=== PATIENT | male | born 1960 | race Caucasian/White ===

== ENCOUNTER → 2020-05-07 | Outpatient (CLI) | payer BC ==
[~2020-05-07] MED LIST: INSU100V8 SQ; LISI10TA2 PO; METF500T16 PO
--- NOTE | 2020-05-07 13:47 | RAD ---
CHEST PA LATERAL History: Cough Comparison: None. Findings: 2 views of the chest are submitted. There is some hazy airspace opacity of the left hemithorax most notable of the mid left hemithorax, also of the right lung base. There is no dependent pleural fluid or pneumothorax. Heart size is upper limits of normal. Impression: 1. There is hazy airspace opacity of the hemithoraces greatest of the mid left hemithorax, also the right lung base. Findings may be due to infiltrates versus edema. Sequela of viral infectious etiology such as COVID is in the differential. Electronically signed by: Arsen Hooper MD (05/07/2020 1:44 PM) [id number]
== END ==
LOC: RAD 13:19
PROVIDERS: ATTEND Family Medicine
DX: R05 Cough (principal)
CPT/HCPCS: 71046

== ENCOUNTER → 2020-05-12 | Outpatient (CLI) | payer BC ==
--- NOTE | 2020-05-12 16:02 | RAD ---
Single view of the chest. 05/12/2020 12:00 AM Indication: Reason: COUGH / Spl. Instructions: / History: Comparison: Chest radiograph May 07, 2020 Findings: Patchy infiltrates, previously most prominent in the left lung are improved in the interim. Mild residual infiltration may be present. No pneumothorax or effusion is seen. Heart size is normal. Lung volumes slightly low. Bony thorax grossly intact. IMPRESSION: Improving patchy bilateral infiltrates as described Electronically signed by: Mark Anthony Estrada MD (05/12/2020 4:00 PM) [id number]
== END ==
LOC: RAD 14:00
PROVIDERS: ATTEND Family Medicine
DX: R05 Cough (principal)
CPT/HCPCS: 71046

== ENCOUNTER → 2020-05-21 | Outpatient (CLI) | payer BC ==
--- NOTE | 2020-05-21 10:11 | RAD ---
CHEST PA LATERAL History: Reason: COUGH, FOLLOW UP PATCHY INFILTRATES / Spl. Instructions: / History: Comparison: May 12, 2020 Findings: Multifocal ill-defined opacities bilaterally, overall similar compared to prior. No pleural effusion. No pneumothorax. Normal heart size. Impression: 1. Unchanged multifocal ill-defined opacities bilaterally. Recommend 3-4 week radiographic follow-up. If persistent opacities, CT can further evaluate. Electronically signed by: Randolph Alvarez DO (05/21/2020 10:08 AM) [facility]
== END ==
LOC: DXRAD 09:26
PROVIDERS: ATTEND Family Medicine
DX: R05 Cough (principal)
CPT/HCPCS: 71046

== ENCOUNTER 2020-12-07 20:02 | Emergency (ER) | payer BC ==
[~2020-12-07] VITALS: Ht 182.9 cm; Wt 150.0 kg
[~2020-12-07 20:02] MED LIST changes: +LISI10TA16 PO; -LISI10TA2 PO
[2020-12-07] MEDS ORDERED: INSULIN REGULAR VIAL 100 UNIT in IV NORMAL SALINE 100ML 100 ML IV ONE (20:45)
[2020-12-07] MEDS: IV NORMAL SALINE 1,000ML 1,000 ML IV STA (20:57)
[2020-12-07] MEDS ORDERED: VANCOMYCIN 1 GM in IV NORMAL SALINE 250ML 250 ML IV ONE (21:00)
[2020-12-07 21:13] LABS: BASO # 0.1 x10^3/uL (0.0-0.2); BASO % 1 % (0-3); EOS % 0 % (0-3); HEMATOCRIT 36.2 % (39.0-53.0); HEMOGLOBIN 12.2 g/dL (13.0-17.5); LYMPH # 1.1 x10^3/uL (1.0-4.8); LYMPH % 6 % (24-48); MEAN CORPUSCULAR HEMOGLOBIN 32 pg (25-35); MEAN CORPUSCULAR HGB CONC 34 g/dL (31-37); MEAN CORPUSCULAR VOLUME 94 fL (79-100); MONO # 1.8 x10^3/uL (0.0-1.1); MONO % 10 % (0-9); NEUT # 15.6 x10^3uL (1.8-7.7); NEUT % 84 % (31-73); PLATELET COUNT 389 x10^3/uL (140-400); RED BLOOD COUNT 3.84 x10^6/uL (4.30-5.70); RED CELL DISTRIBUTION WIDTH 12.8 % (11.5-14.5); WHITE BLOOD COUNT 18.7 x10^3/uL (4.0-11.0)
[2020-12-07] MEDS: INSULIN REGULAR 100 UNIT/ML 3ML VIAL. IV ONE (21:33)
[2020-12-07] MEDS: VANCOMYCIN 2 GM in IV NORMAL SALINE 500ML 500 ML IV ONE (21:35)
[2020-12-07 21:38] LABS: CALCIUM 9.2 mg/dL (8.5-10.1); CREATININE 2.1 mg/dL (0.7-1.3); GFR 32.3; MAGNESIUM 1.7 mg/dL (1.8-2.4); POTASSIUM 4.5 mmol/L (3.5-5.1)
[2020-12-07] MEDS: cefTRIAXone IM 1 GM VIAL IM ONE (21:40)
[2020-12-07] MEDS: TETANUS AND DIPHTHERIA TOX/PF 0.5 ML VIAL. VAX IM ONE (21:44)
[2020-12-07 21:52] LABS: % BANDS 3 % (0-9); % LYMPHS 5 % (24-48); % METAS 1 % (0-0); % MONOS 11 % (0-10); % SEGS 80 % (35-66); PLT ESTIMATE ADEQUATE (ADEQUATE)
--- NOTE | 2020-12-07 22:19 | RAD ---
EXAM: XR CHEST 1V 12/07/2020 9:15 PM CLINICAL INDICATION: Mental status change, infection COMPARISON: Chest radiograph 05/21/2020 TECHNIQUE: AP upright view the chest FINDINGS: The heart and mediastinum are normal. Lungs are hypoexpanded. No consolidation, pleural effusion, or pneumothorax. Pulmonary vascularity is normal. The thoracic skeleton is intact. IMPRESSION: No acute cardiopulmonary abnormality. Electronically signed by: Eliza Ross MD (12/07/2020 10:17 PM) [id number]
--- NOTE | 2020-12-07 22:19 | RAD ---
EXAM: CT head without contrast INDICATION: Mental status change COMPARISON: None available TECHNIQUE: Axial CT imaging through the head without intravenous contrast. One or more of the following individualized dose reduction techniques were utilized for this examinat ion: 1. Automated exposure control 2. Adjustment of the mA and/or kV according to patient size 3. Use of iterative reconstruction technique. FINDINGS: No intracranial hemorrhage, acute infarct, or mass lesion. The ventricles and sulci are moderately en larged. Bautista-white matter differentiation is maintained. The calvarium is intact. Visualized paranasa l sinuses and mastoid air cells are clear. Globes and orbits are intact. IMPRESSION: 1. No acute intracranial abnormality. 2. Moderate volume loss. Electronically signed by: Eliza Ross MD (12/07/2020 10:16 PM) [id number]
--- NOTE | 2020-12-07 22:23 | RAD ---
EXAM: XR FEET 3 VIEWS 12/07/2020 9:15 PM CLINICAL INDICATION: Bilateral dorsal foot ulcers COMPARISON: None TECHNIQUE: 3 views of the right foot 3 views of left foot. FINDINGS: Left foot: No acute fracture. Alignment is normal. There is joint space narrowing with subchondral cy sts at the second and TP joint. Dorsal osteophytes at the TMT joints and naviculocuneiform joint. The re is diffuse soft tissue swelling. Probable ulcer at the tip of the third distal phalanx with possib le cortical indistinctness in the distal phalanx tuft. Right foot: There is severe degenerative joint disease of the great toe MTP joint with subchondral cy sts. There is degenerative joint disease throughout the midfoot with dorsal osteophytes. No acute fra cture. Alignment is normal. There is no definite osseous junction. There is diffuse soft tissue swell ing, greatest along the dorsum of the midfoot. IMPRESSION: 1. Left foot: Soft tissue ulcer at the tip of the third distal phalanx with possible erosion in the u nderlying distal phalanx, which could indicate osteomyelitis. MRI could be obtained to further evalua te. Right foot: No radiographic evidence of osteomyelitis. Dorsal soft tissue swelling. Electronically signed by: Eliza Ross MD (12/07/2020 10:20 PM) [id number]
--- NOTE | 2020-12-07 22:24 | PHYS DOC ---
Past History Past Medical History: Arthritis, Diabetes, High Cholesterol, Hypertension Past Surgical History: Tonsillectomy, Other Smoking: Non-smoker Alcohol Use: Heavy Drug Use: None General Adult EDM: Chief Complaint: ALTERED MENTAL STATUS HPI: HPI: ".. I don't know.. I am just sick.. I did see Dr. Levine... He has been treating it my left infected toes... He wanted admit me but I refused... I guess I should have come in then.. maybe .. I would not be so sick... now...".."Maybe I took too many of my pain meds..."..." making me goofy.,.".." both my feet are killing me.. it like they are on fire..." Patient is a 60 year old nake who presents with hx of mental status change, glucose to high to measure at home and Lt foot diabetic ulcer. Pt. also having Rt. foot pain and swelling. Pt. was seen by Dr. Levine who wanted to admit him earlier. Pt. refused at that time. Son brought him in [facility] because he was more confused and elevated glucose levels. Pt. has had history of elevated uric acid 6.1 sed rate of 39 and his creatinine had gone from 1.3-1.5. Per Dr. Levine . Patient has some history of noncompliance with diet and meds. Has been a longstanding diabetic and sequela of peripheral neuropathy.. Patient has not had any recent travel outside [facility]. No history of immuno suppression, other than his diabetes. Patient has history of elevated cholesterol and hypertension.. Patient is unsure of his last tetanus. Patient has been taking extra narcotic pain meds for his foot pain. Patient does smoke tobacco and marijuana. Review of Systems: Review of Systems: Constitutional: Denies fever or chills Eyes: Denies change in visual acuity HENT: Denies nasal congestion or sore throat Respiratory: Denies cough or shortness of breath Cardiovascular: Denies chest pain or edema GI: Denies abdominal pain, nausea, vomiting, bloody stools or diarrhea : Denies dysuria Musculoskeletal: History of bilateral foot pain Integument: Complaints of left diabetic foot ulcer Neurologic: Complaints of peripheral neuropathy Endocrine: Has history of polyuria and elevated glucose levels Lymphatic: Denies swollen glands Psychiatric: Denies depression or anxiety ., Complaints of confusion. Family History: Family History: Diabetes and hypertension Current Medications: Current Meds: See nursing for home meds Current Medications Medications (Trade) Dose Ordered Sig/Hayley Start Time Stop Time Status Last Admin Dose Admin Ceftriaxone Sodium (Rocephin Im) 1 gm 1X ONCE 12/07/20 20:45 12/07/20 20:53 DC 12/07/20 21:40 1 GM Insulin Human Regular (HumuLIN R VIAL) 10 unit 1X ONCE 12/07/20 20:45 12/07/20 20:53 DC 12/07/20 21:33 10 UNIT Insulin Human Regular 100 unit/ Sodium Chloride 101 ml @ 0 mls/hr 1X ONCE 12/07/20 20:45 12/07/20 21:07 DC Sodium Chloride 1,000 ml @ 1,000 mls/hr 1X STAT 12/07/20 20:45 12/07/20 21:44 DC 12/07/20 20:57 1,000 MLS/HR Tetanus/ Diphtheria Toxoids Adsorbed (Tenivac Vial) 0.5 ml ONCE ONCE 12/07/20 21:30 12/07/20 21:31 DC 12/07/20 21:44 0.5 ML Vancomycin HCl 1 gm/Sodium Chloride 250 ml @ 250 mls/hr 1X ONCE 12/07/20 21:00 12/07/20 21:59 UNV Vancomycin HCl 2 gm/Sodium Chloride 500 ml @ 250 mls/hr 1X ONCE 12/07/20 21:30 12/07/20 23:29 12/07/20 21:35 250 MLS/HR Allergies: Allergies: Allergies Coded Allergies Type Severity Reaction Last Updated Verified No Known Drug Allergies 12/07/20 No Physical Exam: PE: Constitutional: in acute distress, non-toxic appearance. [] HENT: Normocephalic, atraumatic, bilateral external ears normal, oropharynx dry, no oral exudates, nose normal. [] Eyes: PERRLA, EOMI, conjunctiva normal, no discharge. [] Neck: Normal range of motion, no tenderness, supple, no stridor. [] Cardiovascular: Tachycardia heart rate regular rhythm, no murmur [] Lungs & Thorax: Bilateral breath sounds equal apex with few scattered wheezes on auscultation [] Abdomen: Bowel sounds decreased, soft, no tenderness, no masses, no pulsatile masses. [] Skin: Warm, dry, no erythema, no rash. Left diabetic foot ulcer Back: No tenderness, no CVA tenderness. [] Extremities: Bilateral foot tenderness, no cyanosis, no clubbing, ROM intact, bilateral foot edema. Left diabetic foot ulcer. Neurologic: Alert and oriented X 3, normal motor function, decreased plantar sensory function, no focal deficits noted. DTRs +2 brachial and patella. Moves all extremities on request. Right-hand dominant. Doll Repairer equal. No drift. Does have the presence of oversedation. Psychologic: Affect anxious, judgement impaired but is oriented, mood depressed. Current Patient Data: Labs: Laboratory Tests Test 12/07/20 20:25 12/07/20 20:47 Glucose (Fingerstick) 481 mg/dL (70-99) H White Blood Count 18.7 x10^3/uL (4.0-11.0) H Red Blood Count 3.84 x10^6/uL (4.30-5.70) L Hemoglobin 12.2 g/dL (13.0-17.5) L Hematocrit 36.2 % (39.0-53.0) L Mean Corpuscular Volume 94 fL (79-100) Mean Corpuscular Hemoglobin 32 pg (25-35) Mean Corpuscular Hemoglobin Concent 34 g/dL (31-37) Red Cell Distribution Width 12.8 % (11.5-14.5) Platelet Count 389 x10^3/uL (140-400) Neutrophils (%) (Auto) 84 % (31-73) H Lymphocytes (%) (Auto) 6 % (24-48) L Monocytes (%) (Auto) 10 % (0-9) H Eosinophils (%) (Auto) 0 % (0-3) Basophils (%) (Auto) 1 % (0-3) Neutrophils # (Auto) 15.6 x10^3uL (1.8-7.7) H Lymphocytes # (Auto) 1.1 x10^3/uL (1.0-4.8) Monocytes # (Auto) 1.8 x10^3/uL (0.0-1.1) H Eosinophils # (Auto) 0.0 x10^3/uL (0.0-0.7) Basophils # (Auto) 0.1 x10^3/uL (0.0-0.2) Segmented Neutrophils % 80 % (35-66) H Band Neutrophils % 3 % (0-9) Lymphocytes % 5 % (24-48) L Monocytes % 11 % (0-10) H Metamyelocytes % 1 % (0-0) H Platelet Estimate Adequate (ADEQUATE) Prothrombin Time 10.2 SEC (9.4-11.4) Prothrombin Time INR 1.0 (0.9-1.1) Activated Partial Thromboplast Time 25 SEC (23-33) Sodium Level 124 mmol/L (136-145) L Potassium Level 4.5 mmol/L (3.5-5.1) Chloride Level 88 mmol/L (98-107) L Carbon Dioxide Level 21 mmol/L (21-32) Anion Gap 15 (6-14) H Blood Urea Nitrogen 38 mg/dL (8-26) H Creatinine 2.1 mg/dL (0.7-1.3) H Estimated GFR (Cockcroft-Gault) 32.3 Glucose Level 512 mg/dL (70-99) *H Lactic Acid Level 2.9 mmol/L (0.4-2.0) H Uric Acid 6.1 mg/dL (3.5-7.2) Calcium Level 9.2 mg/dL (8.5-10.1) Magnesium Level 1.7 mg/dL (1.8-2.4) L Ammonia 14 mcmol/L (11-34) Creatine Kinase 360 U/L (39-308) H Troponin I Quantitative < 0.017 ng/mL (0-0.055) LQ-Dfs-Y-Type Natriuretic Peptide 1481 pg/mL (0-124) H Vital Signs: Vital Signs Date Time Temp Pulse Resp B/P (MAP) Pulse Ox O2 Delivery O2 Flow Rate FiO2 12/07/20 22:08 98.7 116 34 129/80 (96) 94 12/07/20 20:28 Room Air EKG: EKG: My interpretation EKG shows a sinus tachycardia 130 bpm, bimodal P waves, right bundle branch block, abnormal EKG. [] Radiology/Procedures: Radiology/Procedures: [address] [place] [id number] IMAGING REPORT Signed PATIENT: CAL GLORIA ACCOUNT: [id number] : 1960 LOCATION: ER AGE: 60 SEX: M EXAM STATUS: REG ER ORD. PHYSICIAN: FELIEP POWELL MD REASON: MS CHANGE, INFECTION PROCEDURE: PORTABLE CHEST 1V EXAM: XR CHEST 1V 12/07/2020 9:15 PM CLINICAL INDICATION: Mental status change, infection COMPARISON: Chest radiograph 05/21/2020 TECHNIQUE: AP upright view the chest FINDINGS: The heart and mediastinum are normal. Lungs are hypoexpanded. No consolidation, pleural effusion, or pneumothorax. Pulmonary vascularity is normal. The thoracic skeleton is intact. IMPRESSION: No acute cardiopulmonary abnormality. Electronically signed by: Eliza Ross MD (12/07/2020 10:17 PM) [id number] DICTATED AND SIGNED BY: ELIZA ROSS MD DATE: 12/07/202215 CC: BHARGAVI LEVINE MD; FELIPE POWELL MD ~MTH0 0 [][place] [id number] IMAGING REPORT Signed PATIENT: CAL GLORIA ACCOUNT: [id number] : 1960 LOCATION: ER AGE: 60 SEX: M EXAM STATUS: REG ER ORD. PHYSICIAN: FELIPE POWELL MD REASON: MENTAL STATUS CHANGE- LAST NORMAL 24 HRS AGO PROCEDURE: CT HEAD WO CONTRAST EXAM: CT head without contrast INDICATION: Mental status change COMPARISON: None available TECHNIQUE: Axial CT imaging through the head without intravenous contrast. One or more of the following individualized dose reduction techniques were utilized for this examination: 1. Automated exposure control 2. Adjustment of the mA and/or kV according to patient size 3. Use of iterative reconstruction technique. FINDINGS: No intracranial hemorrhage, acute infarct, or mass lesion. The ventricles and sulci are moderately enlarged. Bautista-white matter differentiation is maintained. The calvarium is intact. Visualized paranasal sinuses and mastoid air cells are clear. Globes and orbits are intact. IMPRESSION: 1. No acute intracranial abnormality. 2. Moderate volume loss. Electronically signed by: Eliza Ross MD (12/07/2020 10:16 PM) [id number] DICTATED AND SIGNED BY: ELIZA ROSS MD DATE: 12/07/202213 CC: BHARGAVI LEVINE MD; FELIPE POWELL MD ~MTH0 0 Heart Score: C/O Chest Pain: No HEART Score for Chest Pain: HEART Score for Chest Pain Response (Comments) Value History Moderately Suspicious 1 ECG Nonspecific Repolarizatio 1 Age >45 - < 65 1 Risk Factors >3 Risk Factors or Hx CAD 2 Troponin < Normal Limit 0 Total 5 Risk Factors: Risk Factors: DM, Current or recent (<one month) smoker, HTN, HLP, family history of CAD, obesity. Risk Scores: Score 0 - 3: 2.5% MACE over next 6 weeks - Discharge Home Score 4 - 6: 20.3% MACE over next 6 weeks - Admit for Clinical Observation Score 7 - 10: 72.7% MACE over next 6 weeks - Early Invasive Strategies Course & Med Decision Making: Course & Med Decision Making Pertinent Labs and Imaging studies reviewed. (See chart for details) Discussed presentation, testing and treatment plan with . Transfer to [facility]- Currently no ICU beds at [facility]. ( pH 7.456- Does not appear DKA) Critical Care- 90 min. Impression: 1. Sepsis / SIRS 2. Leukocytosis 18.7 with 80 Segs 3. Hyponatremia 124- suspect from elevated glucose 4. Dehydration BUN 38/Creat. 2.1\\ 5. Renal insufficiency 6. Hyper glycemia 512 7. Elevated lactic acid 2.9 8. Elevated BNP 1481 9. Peripheral neuropathy 10. Left diabetic foot ulcer 11. Overuse of narcotic pain meds 12. Bilateral foot pain- new finding 13. Elevated CK = 360 ( Trop. nl 0.017) 14. Tobacco marijuana use 15. Mild Hypomagnesium 1.7 [] Dragon Disclaimer: Dragon Disclaimer: This electronic medical record was generated, in whole or in part, using a voice recognition dictation system. Departure Departure: Referrals: BHARGAVI LEVINE MD (PCP) [place] Disclaimer This chart was dictated in whole or in part using Voice Recognition software in a busy, high-work load, and often noisy Emergency Department environment. It may contain unintended and wholly unrecognized errors or omissions. Dragon Disclaimer This chart was dictated in whole or in part using Voice Recognition software in a busy, high-work load, and often noisy Emergency Department environment. It may contain unintended and wholly unrecognized errors or omissions. FELIPE POWELL MD December 07, 2020 22:24
[2020-12-07] MEDS ORDERED: IV RINGERS SOLUTION,LACTATED 1,000 ML IV ONE (22:30)
[2020-12-07 23:21] VITALS: BP 154/70
[2020-12-07 23:40] LABS: AMPHETAMINE/METHAMPHETAMINE NEG (NEG); BARBITURATES NEG (NEG); BENZODIAZEPINES NEG (NEG); CANNABINOIDS POS (NEG); COCAINE NEG (NEG); METHADONE NEG (NEG); OPIATES POS (NEG); PHENCYCLIDINE NEG (NEG)
[2020-12-08 00:35] LABS: BILIRUBIN,URINE SMALL (NEG); CLARITY,URINE CLEAR; COLOR,URINE YELLOW; GLUCOSE,URINE >=1000 mg/dL (NEG)
[2020-12-08 00:36] LABS: BACTERIA,URINE 0 /HPF (0-FEW); NITRITE,URINE NEG (NEG); SQUAMOUS EPITHELIAL CELL,UR FEW /LPF; UROBILINOGEN,URINE 0.2 mg/dL (0.2 mg/dL); WBC,URINE RARE /HPF (0-4)
--- NOTE | 2020-12-08 06:46 | EKG ---
[address] [address] Test Date: 2020-12-07 Test Time: 20:29:43 Pat Name: CAL GLORIA Department: Room: Gender: M Video Editing Intern: : 1960 Requested By: FELIPE POWELL Order Number: [id number] Reading MD: Measurements Intervals [place] Rate: 130 P: -41 TX: 158 QRS: 13 QRSD: 88 T: 21 QT: 272 QTc: 400 Interpretive Statements SINUS TACHYCARDIA LEFT ATRIAL ABNORMALITY INCOMPLETE RIGHT BUNDLE BRANCH BLOCK ABNORMAL ECG RI6.02 No previous ECG available for comparison
== END 2020-12-07 23:52 | disposition short-term general hospital (02) ==
LOC: ER 20:02
DX: A41.9 Sepsis, unspecified organism (principal); D72.829 Elevated white blood cell count, unspecified; E87.1 Hypo-osmolality and hyponatremia; E86.0 Dehydration; N28.9 Disorder of kidney and ureter, unspecified; E11.65 Type 2 diabetes mellitus with hyperglycemia; R79.89 Other specified abnormal findings of blood chemistry; E11.42 Type 2 diabetes mellitus with diabetic polyneuropathy; E11.621 Type 2 diabetes mellitus with foot ulcer; M79.672 Pain in left foot; M79.671 Pain in right foot; R74.8 Abnormal levels of other serum enzymes; E83.42 Hypomagnesemia; M19.90 Unspecified osteoarthritis, unspecified site; E78.00 Pure hypercholesterolemia, unspecified; I10 Essential (primary) hypertension; F10.20 Alcohol dependence, uncomplicated; Y90.9 Presence of alcohol in blood, level not specified
CPT/HCPCS: 36415; 70450; 71045; 73630; 80048; 80307; 81001; 82140; 82550; 82803; 82947; 83605; 83735; 83880; 84484; 84550; 85007; 85025; 85610; 85730; 87040; 87205; 90471; 90714; 93005; 96361; 96365; 96366; 96372; 96375; 99291; 99292; J0696; J1815; J3370; J7030; J7040

== ENCOUNTER → 2020-12-28 | Outpatient (CLI) | payer BC ==
[2020-12-07 23:21] VITALS: BP 154/70
[2020-12-28 20:31] LABS: BASO # 0.1 x10^3/uL (0.0-0.2); BASO % 1 % (0-3); EOS # 0.5 x10^3/uL (0.0-0.7); EOS % 7 % (0-3); HEMATOCRIT 29.9 % (39.0-53.0); HEMOGLOBIN 10.1 g/dL (13.0-17.5); LYMPH # 1.8 x10^3/uL (1.0-4.8); LYMPH % 26 % (24-48); MEAN CORPUSCULAR HEMOGLOBIN 32 pg (25-35); MEAN CORPUSCULAR HGB CONC 34 g/dL (31-37); MEAN CORPUSCULAR VOLUME 94 fL (79-100); MONO # 0.4 x10^3/uL (0.0-1.1); MONO % 6 % (0-9); NEUT # 4.3 x10^3uL (1.8-7.7); NEUT % 60 % (31-73); PLATELET COUNT 352 x10^3/uL (140-400); RED BLOOD COUNT 3.18 x10^6/uL (4.30-5.70); RED CELL DISTRIBUTION WIDTH 13.4 % (11.5-14.5); WHITE BLOOD COUNT 7.1 x10^3/uL (4.0-11.0)
[2020-12-28 20:33] LABS: C REACTIVE PROTEIN 34.9 mg/L (0-3.3); CREATININE 1.8 mg/dL (0.7-1.3); GFR 38.6
[2020-12-28 22:45] LABS: SEDIMENTATION RATE 136 (0-15)
== END ==
LOC: LAB 19:07
PROVIDERS: ATTEND Internal Medicine
DX: I10 Essential (primary) hypertension (principal); E11.9 Type 2 diabetes mellitus without complications; R78.81 Bacteremia
CPT/HCPCS: 36415; 82565; 84520; 85025; 85651; 86140

== ENCOUNTER → 2021-01-04 | Outpatient (CLI) | payer BC ==
[2020-12-07 23:21] VITALS: BP 154/70
[2021-01-04 16:20] LABS: BASO # 0.1 x10^3/uL (0.0-0.2); BASO % 1 % (0-3); EOS # 0.7 x10^3/uL (0.0-0.7); EOS % 12 % (0-3); HEMATOCRIT 27.5 % (39.0-53.0); HEMOGLOBIN 9.6 g/dL (13.0-17.5); LYMPH # 2.1 x10^3/uL (1.0-4.8); LYMPH % 34 % (24-48); MEAN CORPUSCULAR HEMOGLOBIN 33 pg (25-35); MEAN CORPUSCULAR HGB CONC 35 g/dL (31-37); MEAN CORPUSCULAR VOLUME 94 fL (79-100); MONO # 0.4 x10^3/uL (0.0-1.1); MONO % 7 % (0-9); NEUT # 2.8 x10^3uL (1.8-7.7); NEUT % 46 % (31-73); PLATELET COUNT 335 x10^3/uL (140-400); RED BLOOD COUNT 2.95 x10^6/uL (4.30-5.70); RED CELL DISTRIBUTION WIDTH 15.1 % (11.5-14.5); WHITE BLOOD COUNT 6.1 x10^3/uL (4.0-11.0)
[2021-01-04 17:42] LABS: SEDIMENTATION RATE 30 (0-15)
== END ==
LOC: SPEC 15:30
PROVIDERS: ATTEND Family Medicine
DX: Z45.2 Encounter for adjustment and management of vascular access device (principal); Z79.2 Long term (current) use of antibiotics
CPT/HCPCS: 36415; 85025; 85651

== ENCOUNTER → 2021-01-05 | Outpatient (CLI) | payer BC ==
[2020-12-07 23:21] VITALS: BP 154/70
[2021-01-05 15:00] LABS: BASO # 0.1 x10^3/uL (0.0-0.2); BASO % 1 % (0-3); EOS # 0.4 x10^3/uL (0.0-0.7); EOS % 7 % (0-3); HEMATOCRIT 26.8 % (39.0-53.0); HEMOGLOBIN 9.4 g/dL (13.0-17.5); LYMPH # 1.6 x10^3/uL (1.0-4.8); LYMPH % 25 % (24-48); MEAN CORPUSCULAR HEMOGLOBIN 32 pg (25-35); MEAN CORPUSCULAR HGB CONC 35 g/dL (31-37); MEAN CORPUSCULAR VOLUME 93 fL (79-100); MONO # 0.4 x10^3/uL (0.0-1.1); MONO % 6 % (0-9); NEUT # 3.9 x10^3uL (1.8-7.7); NEUT % 61 % (31-73); PLATELET COUNT 333 x10^3/uL (140-400); RED CELL DISTRIBUTION WIDTH 14.9 % (11.5-14.5); WHITE BLOOD COUNT 6.5 x10^3/uL (4.0-11.0)
== END ==
LOC: SPEC 14:16
PROVIDERS: ATTEND Family Medicine
DX: L02.612 Cutaneous abscess of left foot (principal)
CPT/HCPCS: 36415; 85025; 86140

== ENCOUNTER → 2021-01-11 | Outpatient (CLI) | payer BC ==
[2021-01-11 10:37] LABS: BASO # 0.1 x10^3/uL (0.0-0.2); BASO % 1 % (0-3); EOS # 0.5 x10^3/uL (0.0-0.7); EOS % 7 % (0-3); HEMATOCRIT 27.7 % (39.0-53.0); HEMOGLOBIN 9.7 g/dL (13.0-17.5); LYMPH # 1.8 x10^3/uL (1.0-4.8); LYMPH % 23 % (24-48); MEAN CORPUSCULAR HEMOGLOBIN 32 pg (25-35); MEAN CORPUSCULAR HGB CONC 35 g/dL (31-37); MEAN CORPUSCULAR VOLUME 92 fL (79-100); MONO # 0.4 x10^3/uL (0.0-1.1); MONO % 5 % (0-9); NEUT # 4.9 x10^3uL (1.8-7.7); NEUT % 64 % (31-73); PLATELET COUNT 292 x10^3/uL (140-400); RED CELL DISTRIBUTION WIDTH 15.6 % (11.5-14.5); WHITE BLOOD COUNT 7.7 x10^3/uL (4.0-11.0)
[2021-01-11 10:48] LABS: ALBUMIN 2.3 g/dL (3.4-5.0); ALBUMIN/GLOBULIN RATIO 0.6 (1.0-1.7); C REACTIVE PROTEIN 23.3 mg/L (0-3.3); CREATININE 1.4 mg/dL (0.7-1.3); GFR 51.5; TOTAL BILIRUBIN 0.6 mg/dL (0.2-1.0); TOTAL PROTEIN 6.3 g/dL (6.4-8.2)
[2021-01-11 11:03] LABS: POTASSIUM 2.9 mmol/L (3.5-5.1)
[2021-01-11 11:42] LABS: SEDIMENTATION RATE 92 (0-15)
== END ==
LOC: SPEC 10:00
PROVIDERS: ATTEND Family Medicine
DX: Z45.2 Encounter for adjustment and management of vascular access device (principal); N17.9 Acute kidney failure, unspecified
CPT/HCPCS: 36415; 80053; 85025; 85651; 86140

== ENCOUNTER → 2021-01-12 | Outpatient (CLI) | payer BC ==
[2021-01-12 13:24] LABS: CALCIUM 7.7 mg/dL (8.5-10.1); CREATININE 1.4 mg/dL (0.7-1.3); GFR 51.5
[2021-01-12 13:30] LABS: POTASSIUM 2.6 mmol/L (3.5-5.1)
== END ==
LOC: SPEC 12:54
PROVIDERS: ATTEND Family Medicine
DX: Z79.2 Long term (current) use of antibiotics (principal)
CPT/HCPCS: 36415; 80048

== ENCOUNTER → 2021-01-13 | Outpatient (CLI) | payer BC ==
[2021-01-13 14:10] LABS: CALCIUM 7.6 mg/dL (8.5-10.1); CREATININE 1.4 mg/dL (0.7-1.3); GFR 51.5; POTASSIUM 3.7 mmol/L (3.5-5.1)
== END ==
LOC: SPEC 12:16
PROVIDERS: ATTEND Family Medicine
DX: Z79.2 Long term (current) use of antibiotics (principal)
CPT/HCPCS: 36415; 80048

== ENCOUNTER → 2021-01-18 | Outpatient (CLI) | payer BC ==
[2021-01-18 14:34] LABS: BASO # 0.1 x10^3/uL (0.0-0.2); BASO % 1 % (0-3); EOS # 0.4 x10^3/uL (0.0-0.7); EOS % 7 % (0-3); HEMATOCRIT 27.6 % (39.0-53.0); HEMOGLOBIN 9.4 g/dL (13.0-17.5); LYMPH # 1.3 x10^3/uL (1.0-4.8); LYMPH % 24 % (24-48); MEAN CORPUSCULAR HEMOGLOBIN 32 pg (25-35); MEAN CORPUSCULAR HGB CONC 34 g/dL (31-37); MEAN CORPUSCULAR VOLUME 95 fL (79-100); MONO # 0.3 x10^3/uL (0.0-1.1); MONO % 6 % (0-9); NEUT # 3.5 x10^3uL (1.8-7.7); NEUT % 62 % (31-73); PLATELET COUNT 284 x10^3/uL (140-400); RED BLOOD COUNT 2.91 x10^6/uL (4.30-5.70); RED CELL DISTRIBUTION WIDTH 16.8 % (11.5-14.5); WHITE BLOOD COUNT 5.6 x10^3/uL (4.0-11.0)
[2021-01-18 14:43] LABS: CREATININE 1.5 mg/dL (0.7-1.3); GFR 47.6
== END ==
LOC: SPEC 14:10
PROVIDERS: ATTEND Internal Medicine Infectious Disease
DX: Z45.2 Encounter for adjustment and management of vascular access device (principal)
CPT/HCPCS: 36415; 82565; 84520; 85025; 86140

== ENCOUNTER 2021-01-20 10:56 | Emergency (ER) | payer BC ==
[~2021-01-20] VITALS: Ht 182.9 cm; Wt 123.3 kg
--- NOTE | 2021-01-20 11:59 | PHYS DOC ---
Past History Past Medical History: Arthritis, Diabetes, High Cholesterol, Hypertension Additional Past Medical Histor: RECENT STAPH INFECTION(6 WEEKS) TO FEET BILATERALLY Past Surgical History: Tonsillectomy, Other Additional Past Surgical Histo: DISTAL RIGTH MIDDLE TOE AMPUTATION, DRAINS TO ANTERIOR FEET BILATERALLY Smoking: Non-smoker Alcohol Use: Sober Additional Alcohol Information: 6 WEEKS W/O ETOH Drug Use: None Social History Narrative: KAIT JULIEN Adult General Chief Complaint Chief Complaint: HYPERTENSION HPI HPI Patient is a 60-year-old male presenting for high blood pressure. This is a known problem for him, he has been on home Cardizem and losartan now for a while without any recent medication changes. Reports extensive recent medical history concerning for bilateral lower extremity skin infections, bacteremia with subsequent right upper extremity PICC line placement and IV antibiotics at home with home health. States over the last few days he has had intermittent high blood pressure readings greater than 150 systolic. Reports he had an isolated reading this morning at >200/>100 which concerned him so he took an extra dose of his Cardizem. He contacted his primary care physician and discussed blood pressure findings in fact that he had a dull headache and it was advised by the nurse to come in for evaluation. On arrival to ER, he is asymptomatic Review of Systems Review of Systems Fourteen body systems of review of systems have been reviewed. See HPI for pertinent positives and negative responses, other greenberg all other systems are negative, non-pertinent or non-contributory Allergies Allergies Allergies Coded Allergies Type Severity Reaction Last Updated Verified No Known Drug Allergies 12/07/20 No Physical Exam Physical Exam Constitutional: Well developed, well nourished, no acute distress, non-toxic appearance. HENT: Normocephalic, atraumatic, bilateral external ears normal, oropharynx moist, no oral exudates, nose normal. Eyes: PERRLA, EOMI, conjunctiva normal, no discharge. Neck: Normal range of motion, no tenderness, supple, no stridor. Cardiovascular: Heart rate regular, sinus rhythm, no murmurs rubs or gallops Lungs & Thorax: Bilateral breath sounds clear to auscultation Abdomen: Bowel sounds normal, soft, no tenderness, no masses, no pulsatile masses. Nonsurgical abdomen, no peritoneal signs Skin: Warm, dry, no erythema, no rash. Back: No tenderness, no CVA tenderness. Extremities: No tenderness, no cyanosis, no clubbing, ROM intact, no edema. Neurologic: Alert and oriented X 3, grossly normal motor & sensory function, no focal deficits noted. Psychologic: Affect normal, judgement normal, mood normal. Current Patient Data Vital Signs Vital Signs Date Time Temp Pulse Resp B/P (MAP) Pulse Ox O2 Delivery O2 Flow Rate FiO2 01/20/21 11:00 98.3 102 20 146/94 97 Room Air EKG EKG [] Radiology/Procedures Radiology/Procedures [] Heart Score C/O Chest Pain: No Risk Factors: Risk Factors: DM, Current or recent (<one month) smoker, HTN, HLP, family history of CAD, obesity. Risk Scores: Risk Factors: DM, Current or recent (<one month) smoker, HTN, HLP, family history of CAD, obesity. Course & Med Decision Making Course & Med Decision Making ABCs unremarkable. I disclosed entirety of ER findings and discussed most likely diagnosis of hypertension. Patient had numerous blood pressure checks in left upper extremity which is where he has been checking it at home and all readings have been <180/100, he has also been asymptomatic throughout entirety of ER visit. I discussed the limitations and ER work-up that included labs, radiographs and other imaging testing. I discussed best course of action in an otherwise asymptomatic patient with isolated blood pressure readings and occasional headache is to keep a dedicated blood pressure log and discussed this with his primary care who he is not followed up with since his recent complicated hospitalization that required surgical intervention of his feet. Patient agreeable to proposed plan of care. I disclosed this might be an acute presentation more concerning pathology and so, strict return precautions were also discussed at length with good understanding by patient. Patient voiced understanding and agreement with the plan. Patient knows to come back for repeat evaluation if concerning signs or symptoms present prior to outpatient follow- up. Hemodynamically stable, ambulatory and well-appearing at time of disposition. I disclose low risk for hypertensive emergency and/or urgency given blood pressure and lack of symptoms on presentation today Dragon Disclaimer Dragon Disclaimer This electronic medical record was generated, in whole or in part, using a voice recognition dictation system. Departure Departure: Impression: Primary Impression: HTN (hypertension) Disposition: HOME / SELF CARE / HOMELESS Condition: STABLE Referrals: BHARGAVI MICHELLE MD (PCP) Additional Instructions: You were seen for hypertension. Your physical exam was reassuring. Your labs and imaging here were unremarkable. Your multiple blood pressures that were checked here were all unremarkable. You need to follow up with your primary care physician for further evaluation and treatment of your blood pressure. You should return to the ED if you develop chest pain, shortness of breath, severe headache, or any other new or concerning symptoms. Check your blood pressures over the next few days after you take your medications but before any caffeine and keep track of these. Call your primary care physician on the next business day and follow up in the clinic with these results as they may need to adjust your medications. Again, if any new or worsening symptoms, please return to the ED or seek evaluation by a healthcare professional. HITESH ODELL DO Jan 20, 2021 11:59
[2021-01-20 12:03] VITALS: BP 183/96
== END 2021-01-20 12:05 | disposition home or self-care (01) ==
LOC: ER 10:56
DX: I10 Essential (primary) hypertension (principal); M19.90 Unspecified osteoarthritis, unspecified site; E11.9 Type 2 diabetes mellitus without complications; E78.00 Pure hypercholesterolemia, unspecified
CPT/HCPCS: 99281

== ENCOUNTER → 2021-01-20 | Outpatient (CLI) | payer BC ==
[2021-01-20 12:03] VITALS: BP 183/96
[2021-01-20 20:08] LABS: CALCIUM 8.4 mg/dL (8.5-10.1); CREATININE 1.5 mg/dL (0.7-1.3); GFR 47.6; POTASSIUM 3.9 mmol/L (3.5-5.1)
== END ==
LOC: LAB 19:03
PROVIDERS: ATTEND Family Medicine
DX: Z45.2 Encounter for adjustment and management of vascular access device (principal); N17.9 Acute kidney failure, unspecified
CPT/HCPCS: 36415; 80048

== ENCOUNTER 2021-01-25 14:00 | Emergency (ER) | payer BC ==
[~2021-01-25] VITALS: Ht 182.9 cm; Wt 120.6 kg
--- NOTE | 2021-01-25 14:33 | PHYS DOC ---
Past History Past Medical History: Arthritis, Diabetes, High Cholesterol, Hypertension Additional Past Medical Histor: RECENT STAPH INFECTION(6 WEEKS) TO FEET BILATERALLY Past Surgical History: Tonsillectomy, Other Additional Past Surgical Histo: DISTAL RIGTH MIDDLE TOE AMPUTATION, DRAINS TO ANTERIOR FEET BILATERALLY Smoking: Non-smoker Alcohol Use: Sober Drug Use: None General Adult EDM: Chief Complaint: ABNORMAL LABS HPI: HPI: Patient is a 60-year-old male being sent in today by his primary care provider for abnormal labs. Patient reports that he was seen at his primary care provider's office on January 18 and had labs drawn and they were normal. He reports that his home health nurse kartik his blood today and he received a phone call saying that he had a low hemoglobin and hematocrit admitted to go to the ER. According to the records patient had a hemoglobin of 6.7 today which was 9.4 on January 18. He had a hemoglobin of 19.8 today which was 27.6 on January 18. Patient has no current complaints. He denies any rectal bleeding, vomiting, mid emesis, lethargy, weakness, lightheadedness, chest pain, shortness of breath, transfusion history, anemia diagnosis. Patient has a medical history of diabetes and hypothyroidism. He receives home health for bilateral diabetic foot ulcers in which he receives IV antibiotics through his PICC line. Patient had wound VAC dressings changed today. Review of Systems: Review of Systems: 14 body systems of the review of systems have been reviewed. See HPI for per tinent positive and negative responses, otherwise all other systems are negative, nonpertinent or noncontributory Allergies: Allergies: Allergies Coded Allergies Type Severity Reaction Last Updated Verified No Known Drug Allergies 12/07/20 No Physical Exam: PE: Constitutional: Well developed, well nourished, no acute distress, non-toxic appearance. [] HENT: Normocephalic, atraumatic Eyes: PERRL, conjunctiva normal, no discharge. [] Neck: Normal range of motion, no stridor [] Cardiovascular:Heart rate regular rhythm, no murmur [] Lungs & Thorax: Bilateral breath sounds clear to auscultation [] Abdomen: Bowel sounds normal, soft, no tenderness, no masses, no pulsatile masses. [] Skin: Warm, dry, no erythema, no rash, no paleness noted [] Back: No tenderness, range of motion [] Extremities: No tenderness, no cyanosis, no clubbing, ROM intact. Patient has 1+ edema to his bilateral lower extremities, wound vacs noted bilaterally, mild erythema noted to feet bilaterally, feet are absent for warmth, wounds, drainage. Wound VAC dressing is intact. [] Neurologic: Alert and oriented X 3, normal motor function, normal sensory function, no focal deficits noted. [] Psychologic: Affect normal, judgement normal, mood normal. [] Current Patient Data: Labs: Laboratory Tests Test 01/25/21 14:33 White Blood Count 6.0 x10^3/uL Red Blood Count 3.07 x10^6/uL Hemoglobin 9.9 g/dL Hematocrit 29.1 % Mean Corpuscular Volume 95 fL Mean Corpuscular Hemoglobin 32 pg Mean Corpuscular Hemoglobin Concent 34 g/dL Red Cell Distribution Width 16.1 % Platelet Count 344 x10^3/uL Neutrophils (%) (Auto) 56 % Lymphocytes (%) (Auto) 30 % Monocytes (%) (Auto) 7 % Eosinophils (%) (Auto) 7 % Basophils (%) (Auto) 1 % Neutrophils # (Auto) 3.3 x10^3uL Lymphocytes # (Auto) 1.8 x10^3/uL Monocytes # (Auto) 0.4 x10^3/uL Eosinophils # (Auto) 0.4 x10^3/uL Basophils # (Auto) 0.1 x10^3/uL Sodium Level 142 mmol/L Potassium Level 3.9 mmol/L Chloride Level 105 mmol/L Carbon Dioxide Level 28 mmol/L Anion Gap 9 Blood Urea Nitrogen 16 mg/dL Creatinine 1.7 mg/dL Estimated GFR (Cockcroft-Gault) 41.2 BUN/Creatinine Ratio 9 Glucose Level 111 mg/dL Calcium Level 9.2 mg/dL Total Bilirubin 0.7 mg/dL Aspartate Amino Transf (AST/SGOT) 17 U/L Alanine Aminotransferase (ALT/SGPT) 14 U/L Alkaline Phosphatase 104 U/L Total Protein 7.8 g/dL Albumin 2.6 g/dL Albumin/Globulin Ratio 0.5 EKG: EKG: [] Radiology/Procedures: Radiology/Procedures: [] Heart Score: C/O Chest Pain: No Risk Factors: Risk Factors: DM, Current or recent (<one month) smoker, HTN, HLP, family history of CAD, obesity. Risk Scores: Score 0 - 3: 2.5% MACE over next 6 weeks - Discharge Home Score 4 - 6: 20.3% MACE over next 6 weeks - Admit for Clinical Observation Score 7 - 10: 72.7% MACE over next 6 weeks - Early Invasive Strategies Course & Med Decision Making: Course & Med Decision Making Pertinent Labs and Imaging studies reviewed. (See chart for details) Patient is a 60-year-old male being sent in for low hemoglobin and hematocrit. Patient had no current complaints upon ER arrival. Blood work was drawn in the ER and this was negative for any acute findings, will globin and hematocrit are consistent with patient's previous results.. It is likely that patient's blood work that was drawn today was diluted seeing as his blood work on January 18 was unremarkable. I discussed with patient all findings and diagnostic testing as well as the need to follow-up with PCP for further evaluation and treatment or return to the ER if any new or worsening symptoms. Strict return precautions were also discussed at length. Patient voiced understanding and agreement with the plan. Patient is hemodynamically stable at the time of disposition. Dragon Disclaimer: Dragon Disclaimer: This electronic medical record was generated, in whole or in part, using a voice recognition dictation system. Departure Departure: Impression: Primary Impression: Medical condition not demonstrated Disposition: HOME / SELF CARE / HOMELESS Condition: GOOD Referrals: BHARGAVI MICHELLE MD (PCP) Patient Instructions: Medical Screening Exam Additional Instructions: You were seen in the ER today for repeat hemoglobin hematocrit check after receiving low results today. We rechecked your labs and they are consistent with the results found on January 18 at your primary care provider's office. It is likely that the blood draw that you had today was diluted. Please follow-up with your primary care provider tomorrow regarding your ER visit today. Please return to the ER for any new or concerning symptoms. EMERGENCY DEPARTMENT GENERAL DISCHARGE INSTRUCTIONS Thank you for coming to [facility] (ED) today and trusting us with you care. We trust that you had a positivie experience in our Emergency Department. If you wish to speak to the department management, you may call the director at [phone]. YOUR FOLLOW UP INSTRUCTIONS ARE FOLLOWS: 1. Do you have a private Doctor? If you do not have a private doctor, please ask for a resource list of physicians or clinics that may be able to assist you with follow up care. 2. The Emergency Physician has interpreted your x-rays. The X-Ray specialist will also review them. If there is a change in the findings, you will be notified in 48 hours when at all possible. 3. A lab test or culture has been done, your results will be reviewed and you will be notified if you need a change in treatment. ADDITIONAL INSTRUCTIONS AND INFORMATION: 1. Your care today has been supervised by a physician who is specially trained in emergency care. Many problems require more than one evaluation for a complete diagnosis and treatment. We recommend that you schedule your follow up appointment as kylah mmended to ensure complete treatment of you illness or injury. If you are unable to obtain follow up care and continue to have a problem, or if your condition worsens, we recommend that you return to the ED. 2. We are not able to safely determine your condition over the phone nor are we able to give sound medical advice over the phone. For these safety reasons, if you call for medical advice we will ask you to come to the ED for further evaluation. 3. If you have any questions regarding these discharge instructions please call the ED at [phone]. SAFETY INFORMATION: In the interest of safety, wellness, and injury prevention; we encourage you to wear your sealbelt, if you smoke; quite smoking, and we encourage family to use a protective helmet for bicycling and other sporting events that present an increased risk for head injury. IF YOUR SYMPTOMS WORSEN OR NEW SYMPTOMS DEVELOP, OR YOU HAVE CONCERNS ABOUT YOUR CONDITION; OR IF YOUR CONDITION WORSENS WHILE YOU ARE WAITING FOR YOUR FOLLOW UP APPOINTMENT; EITHER CONTACT YOUR PRIMARY CARE DOCTOR, THE PHYSICIAN WHOSE NAME AND NUMBER YOU WERE GIVEN, OR RETURN TO THE ED IMMEDIATELY. FRANCESCA CARLSON APRN Jan 25, 2021 14:32
[2021-01-25 14:51] LABS: BASO # 0.1 x10^3/uL (0.0-0.2); BASO % 1 % (0-3); EOS # 0.4 x10^3/uL (0.0-0.7); EOS % 7 % (0-3); HEMATOCRIT 29.1 % (39.0-53.0); LYMPH # 1.8 x10^3/uL (1.0-4.8); LYMPH % 30 % (24-48); MEAN CORPUSCULAR HEMOGLOBIN 32 pg (25-35); MEAN CORPUSCULAR HGB CONC 34 g/dL (31-37); MEAN CORPUSCULAR VOLUME 95 fL (79-100); MONO # 0.4 x10^3/uL (0.0-1.1); MONO % 7 % (0-9); NEUT # 3.3 x10^3uL (1.8-7.7); NEUT % 56 % (31-73); PLATELET COUNT 344 x10^3/uL (140-400); RED BLOOD COUNT 3.07 x10^6/uL (4.30-5.70); RED CELL DISTRIBUTION WIDTH 16.1 % (11.5-14.5)
[2021-01-25 14:55] LABS: HEMOGLOBIN 9.9 g/dL (13.0-17.5)
[2021-01-25 15:00] LABS: CALCIUM 9.2 mg/dL (8.5-10.1); CREATININE 1.7 mg/dL (0.7-1.3); GFR 41.2; POTASSIUM 3.9 mmol/L (3.5-5.1)
[2021-01-25 15:07] LABS: ALBUMIN 2.6 g/dL (3.4-5.0); ALBUMIN/GLOBULIN RATIO 0.5 (1.0-1.7); TOTAL BILIRUBIN 0.7 mg/dL (0.2-1.0); TOTAL PROTEIN 7.8 g/dL (6.4-8.2)
[2021-01-25 15:25] VITALS: BP 161/103
== END 2021-01-25 15:38 | disposition home or self-care (01) ==
LOC: ER 14:00
DX: Z71.1 Person with feared health complaint in whom no diagnosis is made (principal); M19.90 Unspecified osteoarthritis, unspecified site; E11.9 Type 2 diabetes mellitus without complications; E78.00 Pure hypercholesterolemia, unspecified; I10 Essential (primary) hypertension
CPT/HCPCS: 36415; 80053; 85025; 99283

== ENCOUNTER → 2021-01-25 | Outpatient (CLI) | payer BC ==
[2021-01-20 12:03] VITALS: BP 183/96
--- NOTE | 2021-01-25 13:00 | RAD ---
EXAM: Head CT without contrast. HISTORY: Headache. TECHNIQUE: Computed tomographic images of the head were obtained without contrast. *One or more of the following individualized dose reduction techniques were utilized for this examina tion: 1. Automated exposure control. 2. Adjustment of the mA and/or kV according to patient size. 3. Use of iterative reconstruction technique. COMPARISON: 12/07/2020. FINDINGS: There is no acute or subacute extra-axial or intraparenchymal hemorrhage. There is no mass effect or midline shift. There is no hydrocephalus. There are areas of decreased attenuation within the cerebral white matter, nonspecific and likely rel ated to chronic small vessel disease. There is cerebral volume loss. The orbits are unremarkable. The paranasal sinuses are clear. There is minimal mastoid fluid. There i s no suspicious calvarial lesion. IMPRESSION: 1. No acute intracranial finding. 2. Bilateral cerebral white matter changes, likely due to chronic small vessel disease. Electronically signed by: Evelina Pierson MD (01/25/2021 12:57 PM) [id number]
== END ==
LOC: CT 12:37
PROVIDERS: ATTEND Family Medicine
DX: R51.9 Headache, unspecified (principal)
CPT/HCPCS: 70450

== ENCOUNTER → 2021-01-25 | Outpatient (CLI) | payer BC ==
[2021-01-20 12:03] VITALS: BP 183/96
[2021-01-25 11:59] LABS: BASO # 0.1 x10^3/uL (0.0-0.2); BASO % 1 % (0-3); EOS # 0.3 x10^3/uL (0.0-0.7); EOS % 7 % (0-3); LYMPH # 1.3 x10^3/uL (1.0-4.8); LYMPH % 28 % (24-48); MEAN CORPUSCULAR HEMOGLOBIN 32 pg (25-35); MEAN CORPUSCULAR HGB CONC 34 g/dL (31-37); MEAN CORPUSCULAR VOLUME 95 fL (79-100); MONO # 0.3 x10^3/uL (0.0-1.1); MONO % 7 % (0-9); NEUT # 2.6 x10^3uL (1.8-7.7); NEUT % 58 % (31-73); PLATELET COUNT 230 x10^3/uL (140-400); RED BLOOD COUNT 2.08 x10^6/uL (4.30-5.70); RED CELL DISTRIBUTION WIDTH 16.1 % (11.5-14.5); WHITE BLOOD COUNT 4.5 x10^3/uL (4.0-11.0)
[2021-01-25 12:02] LABS: C REACTIVE PROTEIN 30.4 mg/L (0-3.3); CREATININE 1.4 mg/dL (0.7-1.3); GFR 51.5
[2021-01-25 13:01] LABS: HEMATOCRIT 19.8 % (39.0-53.0); HEMOGLOBIN 6.7 g/dL (13.0-17.5)
[2021-01-25 13:14] LABS: SEDIMENTATION RATE 60 (0-15)
== END ==
LOC: SPEC 11:21
PROVIDERS: ATTEND Internal Medicine Infectious Disease
DX: Z45.2 Encounter for adjustment and management of vascular access device (principal)
CPT/HCPCS: 36415; 82565; 84520; 85025; 85651; 86140